=== PATIENT | male | born 1950 | race Two or more races ===

== ENCOUNTER 2020-09-05 14:00 | Inpatient (IN) | payer OTHER ==
[~2020-09-05] VITALS: Ht 162.6 cm; Wt 67.5 kg
[2020-09-05] MEDS ORDERED: AZITHROMYCIN 500MG/ 250ML 250 ML IV ONE (14:15)
[2020-09-05] MEDS ORDERED: methylPREDNISolone SOD SUCC 125 MG/2 ML VL IV ONE (14:15)
[2020-09-05 15:38] LABS: Basophils # (auto) 0 10 ^3/uL (0-0.2); Basophils % (auto) 0.1 % (0.0-2.0); Eosinophils # (auto) 0 10 ^3/uL (0-0.8); Eosinophils % (auto) 0.1 % (0.0-7.0); Hematocrit 43.3 % (41.0-53.0); Hemoglobin 14.3 g/dL (13.5-17.5); Lymphocytes # (auto) 0.5 10 ^3/uL (0.4-5.4); Lymphocytes % (auto) 7.3 % (10.0-50.0); Mean Corpuscular Hemoglobin 28.4 pg (28.0-32.0); Mean Corpuscular Hgb Conc. 33.1 g/dL (32.0-36.0); Mean Corpuscular Volume 85.9 fL (80.0-100.0); Monocytes # (auto) 0.7 10 ^3/uL (0-1.3); Monocytes % (auto) 10.4 % (0.0-12.0); Neutrophils # (auto) 5.7 10 ^3/uL (1.6-8.6); Neutrophils % (auto) 82.1 % (37.0-80.0); Nucleated Red Blood Cells % 0.2 %; Platelet Count (auto) 287 10^3/uL (140-450); Red Blood Cells 5.03 10^6/uL (4.5-5.90); Red Cell Distribution Width 13.2 % (11.8-14.3); White Blood Cell 6.9 10^3/uL (4.4-10.8)
[2020-09-05 15:58] LABS: Blood Urea Nitrogen 33 mg/dL (7-18); Calcium 8.3 mg/dL (8.5-10.1); Chloride 103 mmol/L (98-107); Potassium 3.6 mmol/L (3.5-5.1); Sodium 134 mmol/L (136-145)
[2020-09-05 16:08] LABS: Alanine Aminotransferase 36 U/L (16-61); Albumin 2.6 g/dL (3.4-5.0); Alkaline Phosphatase 92 U/L (45-117); Anion Gap 7 (5-15); Aspartate Aminotransferase 66 U/L (15-37); BUN/Creatinine Ratio 31.4; Bilirubin, Total 0.6 mg/dL (0.2-1.0); Carbon Dioxide 24 mmol/L (21-32); GFR African American 90 mL/min; GFR Non-African American 75 mL/min; Glucose 148 mg/dL (74-106); Total Protein 7.7 g/dL (6.4-8.2)
[2020-09-06 00:35] VITALS: BP 131/73
--- NOTE | 2020-09-06 00:35 | NUR ---
MS admit from ER LUISITO PABLO admitted to [facility] after NO SBAR received. Patient oriented to MABEL NERI, RN primary RN, unit, room, bed, and unit policies regarding patient care and visiting hours. Patient weighed by bedscale and encouraged to call if they need something. All questions and concerns addressed, patient verbalized understanding. Call light wihtin reach and bed in low position., Guards at bedside.
[2020-09-06] MEDS: ACCU-CHEK COMFORT CURVE STRIP VI SCH ×2 (05:51→18:01)
[2020-09-06] MEDS: InsuLIN REG 1unit/0.01ml Soln (100units/ml) SC SCH ×2 (05:52→18:02)
[2020-09-06 06:06] VITALS: BP 122/74
--- NOTE | 2020-09-06 07:05 | NUR ---
REPORT GIVEN TO DAYSHIFT RN PATIENT DENIES SOB/DISTRESS OR PAIN
--- NOTE | 2020-09-06 08:00 | NUR ---
ASSESSMENT NOTE PT IS ALERT ORIENTED X4, RESTING IN BED COMFORTABLY, NO DISTRESS NOTED, OXYGEN 2 L NC, ABLE TO SELF REPOSITION AND VERBALIS HIS DEMANDS, PAIN 0/10 AT THIS TIME, A METAL HAND CUFF NOTED AT LEFT WRIEST AND BOTH FEET, GUARDS AT BED SIDE AT ALL TIMES, USE URINAL NEEDED, CALL LIGHT WITHIN REACH
[2020-09-06] MEDS: cefTRIAXone 1GM/50ML D5W 50 ML IV SCH (09:49)
[2020-09-06] MEDS: ZINC SULFATE 220mg CAP or TAB PO SCH (09:49)
[2020-09-06] MEDS: ASCORBIC ACID 500 MG TAB PO SCH (09:49)
[2020-09-06] MEDS: methylPREDNISolone SOD SUCC 125 MG/2 ML VL IV SCH (09:49)
[2020-09-06] MEDS: CHOLECALCIFEROL (VITD3) 2,000 UNIT CAP PO SCH (09:50)
[2020-09-06] MEDS: AZITHROMYCIN 250 MG TAB PO SCH (09:50)
--- NOTE | 2020-09-06 14:26 | NUR ---
Nutrition Consult/Assessment Notes please see attached link for complete assessment [employer] needs BW 68 [id number] kcals (23-25 kcal/kgBW), Est Protein needs: 68-74 gms/day (1.0-1.1 gm/kgBW). Will continue to monitor and reassess prn. Addendum: 09/06/20 at [address] Amended: Links added.
--- NOTE | 2020-09-06 18:00 | NUR ---
PT CONTINUE STABLE, TOLERATED DIET WELL, NO DISTRESS NOTED, ABLE TO AMBULATE TO BATHROOM NEEDED, GUARDS AT BED SIDE AT ALL TIMES
--- NOTE | 2020-09-06 19:35 | NUR ---
Opening Shift Note Assumed care of patient, awake and alert. No S/S of distress/SOB or pain. Instructed on POC and to call for assist PRN, will continue to monitor for changes Q1hr and PRN.Bed in low position and call light within reach. guards at bedside.
[2020-09-06] MEDS: ATORVASTATIN 20 MG TAB PO SCH (21:39)
[2020-09-06 22:00] VITALS: BP 128/73
[2020-09-07 04:52] VITALS: BP 124/75
[2020-09-07] MEDS: glipiZIDE 5 MG TAB PO SCH (06:20)
[2020-09-07] MEDS: InsuLIN REG 1unit/0.01ml Soln (100units/ml) SC SCH ×2 (06:23→18:49)
[2020-09-07] MEDS: ACCU-CHEK COMFORT CURVE STRIP VI SCH ×2 (06:23→18:49)
--- NOTE | 2020-09-07 07:05 | NUR ---
Report given to dayshift rn patient denies sob distress or pain.
--- NOTE | 2020-09-07 07:30 | NUR ---
Opening Shift Note Assumed care of patient, awake and alert. No signs of distress or pain noted. Patient on 2 L Nasal Cannula. Respirations even and unlabored. Instructed patient on the use of the call light PRN. Call light within reach. Safety measures in place including bed locked and in lowest position, and two side rails up. Will continue to monitor for any changes.
[2020-09-07] MEDS ORDERED: metFORMIN HYDROCHLORIDE 500 MG TAB PO SCH (08:00)
[2020-09-07 09:00] VITALS: BP 136/80
[2020-09-07] MEDS: ASCORBIC ACID 500 MG TAB PO SCH (11:21)
[2020-09-07] MEDS: ZINC SULFATE 220mg CAP or TAB PO SCH (11:21)
[2020-09-07] MEDS: methylPREDNISolone SOD SUCC 125 MG/2 ML VL IV SCH (11:21)
[2020-09-07] MEDS: LISINOPRIL 10 MG TAB PO SCH (11:21)
[2020-09-07] MEDS: ASPirin 81 mg TAB PO SCH (11:22)
[2020-09-07] MEDS: ENOXAPARIN SOD 40 MG/0.4 ML SYRINGE SC SCH (11:27)
[2020-09-07] MEDS: AZITHROMYCIN 250 MG TAB PO SCH (11:27)
[2020-09-07] MEDS: cefTRIAXone 1GM/50ML D5W 50 ML IV SCH (11:28)
--- NOTE | 2020-09-07 12:05 | NUR ---
Dr. Duong at bedside Dr. Duong at bedside. Spoke to patients and updated patient on plan of care.
[2020-09-07 12:49] VITALS: BP 143/76
[2020-09-07] MEDS ORDERED: REMDESIVIR PER PHARMACY 0 ML IV SCH ×2 (14:15→14:30)
[2020-09-07] MEDS: CHOLECALCIFEROL (VITD3) 2,000 UNIT CAP PO SCH (14:21)
[2020-09-07] MEDS ORDERED: REMDESIVIR 200 MG in NS 210ml LOADING DOSE ADULT IV ONE (15:00)
--- NOTE | 2020-09-07 15:43 | NUR ---
DR. TREJO AT BEDSIDE.
[2020-09-07] MEDS: metFORMIN HYDROCHLORIDE 850 MG TAB PO SCH ×2 (16:02→22:09)
[2020-09-07 16:38] VITALS: BP 126/70
--- NOTE | 2020-09-07 17:17 | NUR ---
REMDESIVIR Medication ended. Patient tolerated medication well, will continue to monitor. REMDESIVIR INFUSION VITALS Pre Infusion Vitals: Heart Rate: 87 BP: 126/70 Temperature: 97.9 O2: 96 Respiratory Rate: 20 15 minute vitals: Heart Rate: 93 BP: 131/72 Temperature: 98.0 O2: 95 Respiratory Rate: 22 Post Infusion Vitals: Heart Rate: 97 BP: 131/78 Temperature: 97.9 O2: 96 Respiratory Rate: 20
--- NOTE | 2020-09-07 18:17 | NUR ---
REMDESIVIR 1 hour post remdesivir vitals: Blood Pressure: 129/74 O2: 92 Temperature: 97.9 Heart Rate: 87 Respiratory rate: 20
--- NOTE | 2020-09-07 19:55 | NUR ---
Opening Shift Note Assumed care of patient. Awake, alert and oriented x4. No S/S of distress/SOB or pain. Pt is on 2L NC with even and unlabored respirations. Instructed on POC and to call for assist PRN. Bed locked, in lowest position, call light within reach, side rails up x2. Will continue to monitor for changes Q1hr and PRN.
[2020-09-07 22:00] VITALS: BP 134/74
[2020-09-07] MEDS: ATORVASTATIN 20 MG TAB PO SCH (22:09)
[2020-09-08 05:00] VITALS: BP 128/78
[2020-09-08] MEDS: metFORMIN HYDROCHLORIDE 850 MG TAB PO SCH ×3 (07:02→17:41)
[2020-09-08] MEDS: InsuLIN REG 1unit/0.01ml Soln (100units/ml) SC SCH ×2 (07:03→17:42)
[2020-09-08] MEDS: ACCU-CHEK COMFORT CURVE STRIP VI SCH ×2 (07:03→17:41)
[2020-09-08] MEDS: glipiZIDE 5 MG TAB PO SCH (07:03)
[2020-09-08 08:00] VITALS: BP 136/80
[2020-09-08 08:47] VITALS: BP 125/68
[2020-09-08 09:29] LABS: Albumin 2.4 g/dL (3.4-5.0); Calcium 8.5 mg/dL (8.5-10.1); Potassium 3.8 mmol/L (3.5-5.1)
[2020-09-08 09:32] LABS: BUN/Creatinine Ratio 35.5; Bilirubin, Total 0.5 mg/dL (0.2-1.0); Total Protein 7.2 g/dL (6.4-8.2)
[2020-09-08] MEDS: DexAMETHasone SOD PHOS 10MG/1ML VIAL INJ IV SCH (09:42)
[2020-09-08] MEDS: ASPirin 81 mg TAB PO SCH (09:43)
[2020-09-08] MEDS: ZINC SULFATE 220mg CAP or TAB PO SCH (09:43)
[2020-09-08] MEDS: ASCORBIC ACID 500 MG TAB PO SCH (09:43)
[2020-09-08] MEDS: CHOLECALCIFEROL (VITD3) 2,000 UNIT CAP PO SCH (09:43)
[2020-09-08] MEDS: cefTRIAXone 1GM/50ML D5W 50 ML IV SCH (09:43)
[2020-09-08] MEDS: LISINOPRIL 10 MG TAB PO SCH (09:44)
[2020-09-08] MEDS: ENOXAPARIN SOD 40 MG/0.4 ML SYRINGE SC SCH (09:44)
[2020-09-08] MEDS: AZITHROMYCIN 250 MG TAB PO SCH (09:44)
--- NOTE | 2020-09-08 12:00 | NUR ---
DR OLIVA IS HERE, FOLLOWING UP ON PT
[2020-09-08 12:42] VITALS: BP 125/71
[2020-09-08] MEDS: REMDESIVIR 100 MG in SODIUM CHL 0.9% 250 ML IV SCH (15:33)
--- NOTE | 2020-09-08 15:33 | NUR ---
REMEDISIVIR IV INITIATED PRE SET OF VS TAKEN, CONTINUE MONITORING
--- NOTE | 2020-09-08 16:33 | NUR ---
PT TOLERATED REMEDISIVIR WELL, NO DISTRESS NOTED, CONTINUE MONITORING
[2020-09-08 17:08] VITALS: BP 128/76
--- NOTE | 2020-09-08 18:48 | NUR ---
PT CONTINUE STABLE, CONTINUE MONITORING
[2020-09-08 22:15] VITALS: BP 125/72
[2020-09-08] MEDS: ATORVASTATIN 20 MG TAB PO SCH (22:26)
[2020-09-09] VITALS (7 sets, daily range): BP systolic 118–125; BP diastolic 68–72
[2020-09-09] MEDS: glipiZIDE 5 MG TAB PO SCH (06:39)
[2020-09-09] MEDS: ACCU-CHEK COMFORT CURVE STRIP VI SCH ×2 (06:40→16:52)
[2020-09-09] MEDS: InsuLIN REG 1unit/0.01ml Soln (100units/ml) SC SCH ×2 (06:40→16:59)
[2020-09-09] MEDS: metFORMIN HYDROCHLORIDE 850 MG TAB PO SCH ×3 (08:08→17:45)
[2020-09-09] MEDS: cefTRIAXone 1GM/50ML D5W 50 ML IV SCH (10:09)
[2020-09-09] MEDS: DexAMETHasone SOD PHOS 10MG/1ML VIAL INJ IV SCH (10:09)
[2020-09-09] MEDS: ZINC SULFATE 220mg CAP or TAB PO SCH (10:09)
[2020-09-09] MEDS: ASPirin 81 mg TAB PO SCH (10:09)
[2020-09-09] MEDS: AZITHROMYCIN 250 MG TAB PO SCH (10:10)
[2020-09-09] MEDS: ASCORBIC ACID 500 MG TAB PO SCH (10:10)
[2020-09-09] MEDS: CHOLECALCIFEROL (VITD3) 2,000 UNIT CAP PO SCH (10:10)
--- NOTE | 2020-09-09 10:16 | NUR ---
Nutrition Followup Note Wt 69.6kg Pt is covid positive in covid isolation. Pt with no new distress per Rn note. Pt appetite is good aeb pt with 100% po intake of all meals per RN note of CCHO 60g diet Est [employer] needs BW 68 [id number] kcals (23-25 kcal/kgBW), Est Protein needs: 68-74 gms/day (1.0-1.1 gm/kgBW). Will continue to monitor and reassess prn. Labs: BUN 33H, GLUC 206H, Alb 2.4L BM: Pt with no BM noted per Rn note Skin: BS 20 low risk, full details in care nurse rn note . PES Altered nutrition related lab values r.t current chronic medical conidtion aeb elev BUN mod hypoalb hyperglycemia Comments 1) consider CCHO 60 gm as pt with hx of DM 2) refer to CDE on DC 3) continue current plan of care Expected Outcomes/Goals: pt will have improved labs F/u mod 3-5 days
[2020-09-09] MEDS: ENOXAPARIN SOD 40 MG/0.4 ML SYRINGE SC SCH (11:03)
[2020-09-09] MEDS: LISINOPRIL 10 MG TAB PO SCH (11:03)
[2020-09-09 13:07] LABS: Potassium 3.8 mmol/L (3.5-5.1)
[2020-09-09 13:20] LABS: Albumin 2.3 g/dL (3.4-5.0); BUN/Creatinine Ratio 31.9; Bilirubin, Total 0.4 mg/dL (0.2-1.0); Calcium 8.2 mg/dL (8.5-10.1); Total Protein 6.4 g/dL (6.4-8.2)
[2020-09-09] MEDS: REMDESIVIR 100 MG in SODIUM CHL 0.9% 250 ML IV SCH (15:25)
--- NOTE | 2020-09-09 15:25 | NUR ---
REMEDISIVIR IV INITIATED PRE SET OF VS TAKEN, CONTINUE MONITORING
--- NOTE | 2020-09-09 16:25 | NUR ---
PT TOLERATED REMEDISIVIR WELL, NO DISTRESS NOTED, CONTINUE MONITORING
--- NOTE | 2020-09-09 18:50 | NUR ---
PT CONTINUE STABLE, CONTINUE MONITORING
[2020-09-09] MEDS: ATORVASTATIN 20 MG TAB PO SCH (21:35)
[2020-09-10] VITALS (8 sets, daily range): BP systolic 115–137; BP diastolic 67–84
[2020-09-10] MEDS: InsuLIN REG 1unit/0.01ml Soln (100units/ml) SC SCH ×2 (06:41→17:23)
[2020-09-10] MEDS: glipiZIDE 5 MG TAB PO SCH (06:42)
[2020-09-10] MEDS: ACCU-CHEK COMFORT CURVE STRIP VI SCH ×2 (06:43→17:15)
[2020-09-10 07:36] LABS: Potassium 4.1 mmol/L (3.5-5.1)
[2020-09-10 07:42] LABS: Albumin 2.5 g/dL (3.4-5.0); BUN/Creatinine Ratio 35.1; Calcium 8.2 mg/dL (8.5-10.1)
[2020-09-10 07:45] LABS: Bilirubin, Total 0.6 mg/dL (0.2-1.0); Total Protein 6.6 g/dL (6.4-8.2)
--- NOTE | 2020-09-10 08:00 | NUR ---
ASSESSMENT NOTE PT IS ALERT ORIENTED X4, RESTING IN BED COMFORTABLY, NO DISTRESS NOTED, OXYGEN 2 L NC, SAT AT 94 %, ABLE TO SELF REPOSITION AND VERBALIS HIS DEMANDS, PAIN 0/10 AT THIS TIME, A METAL HAND CUFF NOTED AT LEFT WRIEST AND BOTH FEET, GUARDS AT BED SIDE AT ALL TIMES, USE URINAL NEEDED, CALL LIGHT WITHIN REACH
[2020-09-10] MEDS: metFORMIN HYDROCHLORIDE 850 MG TAB PO SCH ×3 (08:36→17:59)
--- NOTE | 2020-09-10 09:30 | NUR ---
DR TREJO IS HERE FOLLOWING UP ON PT, ADVICE TO TAKE OFF THE OXYGEN AND REASSESS
[2020-09-10] MEDS: ASPirin 81 mg TAB PO SCH (10:14)
[2020-09-10] MEDS: DexAMETHasone SOD PHOS 10MG/1ML VIAL INJ IV SCH (10:14)
[2020-09-10] MEDS: cefTRIAXone 1GM/50ML D5W 50 ML IV SCH (10:14)
[2020-09-10] MEDS: CHOLECALCIFEROL (VITD3) 2,000 UNIT CAP PO SCH (10:15)
[2020-09-10] MEDS: ASCORBIC ACID 500 MG TAB PO SCH (10:15)
[2020-09-10] MEDS: ZINC SULFATE 220mg CAP or TAB PO SCH (10:15)
[2020-09-10] MEDS: LISINOPRIL 10 MG TAB PO SCH (10:16)
[2020-09-10] MEDS: AZITHROMYCIN 250 MG TAB PO SCH (10:16)
[2020-09-10] MEDS: ENOXAPARIN SOD 40 MG/0.4 ML SYRINGE SC SCH (10:16)
--- NOTE | 2020-09-10 11:30 | NUR ---
ROOM AIR SATURATION ON RESTING 93 % PT AMBULATING IN THE HALLWAYS, 100 FEET AND BACK TO BED, PT SAT AT 89-90, OCCASIONAL NON PRODUCTIVE COUGH NOTED, OXYGEN 2 L NC APPLIED
[2020-09-10] MEDS: REMDESIVIR 100 MG in SODIUM CHL 0.9% 250 ML IV SCH (15:49)
--- NOTE | 2020-09-10 15:49 | NUR ---
REMEDISIVIR IV INITIATED PRE SET OF VS TAKEN, CONTINUE MONITORING
--- NOTE | 2020-09-10 16:49 | NUR ---
PT TOLERATED REMEDISIVIR WELL, NO DISTRESS NOTED, CONTINUE MONITORING
--- NOTE | 2020-09-10 18:25 | NUR ---
PT CONTINUE STABLE, CONTINUE MONITORING
--- NOTE | 2020-09-10 19:30 | NUR ---
OPENING SHIFT NOTE Assumed care of patient who is A&O x4. Currently on 2L NC with no s/s of distress. Reports productive cough with white thick secretions and pleuritic pain upon deep inspiration. PIV in right hand is intact and patent. Flushed with 10ml NS. Patient is ambulatory without the use of assistive devices at baseline. POC discussed and patient verbalized understanding. Patient is an [employer] inmate and is restrained too bed at left wrist and bilateral ankles. Two correctional officers present at bedside for safety. Bed is in low locked position with side rails up x2. Call light is within reach and patient encouraged to call for assistance when needed. Will continue to monitor for changes PRN.
[2020-09-10] MEDS: ATORVASTATIN 20 MG TAB PO SCH (21:44)
--- NOTE | 2020-09-10 23:00 | NUR ---
IS Patient educated on IS. Return demonstration with marker at 700 x3. Patient coughing after deep inspiration. Encouraged to continue with 10 cycles per hour while awake. Patient verbalizes understanding.
--- NOTE | 2020-09-10 23:30 | NUR ---
350ml Clear yellow urine emptied from urinal.
[2020-09-11 05:53] VITALS: BP 124/75
[2020-09-11] MEDS: ACCU-CHEK COMFORT CURVE STRIP VI SCH ×2 (06:27→17:26)
[2020-09-11] MEDS: InsuLIN REG 1unit/0.01ml Soln (100units/ml) SC SCH ×2 (06:27→18:02)
[2020-09-11] MEDS: glipiZIDE 5 MG TAB PO SCH (06:28)
[2020-09-11 07:18] LABS: Albumin 2.5 g/dL (3.4-5.0); BUN/Creatinine Ratio 25.7; Bilirubin, Total 0.6 mg/dL (0.2-1.0); Calcium 8.5 mg/dL (8.5-10.1); Total Protein 6.6 g/dL (6.4-8.2)
[2020-09-11 08:00] VITALS: BP_SYST 128; BP_SYST 129; BP_DIAS 67; BP_DIAS 71
--- NOTE | 2020-09-11 08:00 | NUR ---
ASSESSMENT NOTE PT IS ALERT ORIENTED X4, RESTING IN BED COMFORTABLY, NO DISTRESS NOTED, OXYGEN 2 L NC, SAT AT 94 %, ABLE TO SELF REPOSITION AND VERBALIS HIS DEMANDS, GENERALIS WEAKNESS NOTED, PAIN 0/10 AT THIS TIME, A METAL HAND CUFF NOTED AT LEFT WRIEST AND BOTH FEET, GUARDS AT BED SIDE AT ALL TIMES, USE URINAL NEEDED, CALL LIGHT WITHIN REACH
--- NOTE | 2020-09-11 10:00 | NUR ---
INCENTIVE SPIROMETER EDUCATED PT HOW TO USE INCENTIVE SPIROMETER EVERY HOUR TOLERATED, , EXPLAIN WHY, VERBALIS UNDERSTANDING.
[2020-09-11] MEDS: ASPirin 81 mg TAB PO SCH (10:07)
[2020-09-11] MEDS: metFORMIN HYDROCHLORIDE 850 MG TAB PO SCH ×3 (10:07→18:01)
[2020-09-11] MEDS: cefTRIAXone 1GM/50ML D5W 50 ML IV SCH (10:07)
[2020-09-11] MEDS: DexAMETHasone SOD PHOS 10MG/1ML VIAL INJ IV SCH (10:07)
[2020-09-11] MEDS: ZINC SULFATE 220mg CAP or TAB PO SCH (10:08)
[2020-09-11] MEDS: ASCORBIC ACID 500 MG TAB PO SCH (10:08)
[2020-09-11] MEDS: LISINOPRIL 10 MG TAB PO SCH (10:08)
[2020-09-11] MEDS: CHOLECALCIFEROL (VITD3) 2,000 UNIT CAP PO SCH (10:08)
[2020-09-11] MEDS: ENOXAPARIN SOD 40 MG/0.4 ML SYRINGE SC SCH (10:09)
[2020-09-11] MEDS: AZITHROMYCIN 250 MG TAB PO SCH (10:09)
--- NOTE | 2020-09-11 12:00 | NUR ---
DR TREJO IS HERE FOLLOWING UP ON PT, MADE AWARE OF PATIENT'S SATURATION DURING AMBULATION AND ON RESTING
--- NOTE | 2020-09-11 12:00 | NUR ---
PT ON ROOM AIR SAT AT 94 % ON RESTING, CONTINUE MONITORING
[2020-09-11 13:00] VITALS: BP 128/75
[2020-09-11] MEDS: REMDESIVIR 100 MG in SODIUM CHL 0.9% 250 ML IV SCH (16:18)
--- NOTE | 2020-09-11 16:18 | NUR ---
REMEDISIVIR IV INTIMATED PRE SET OF VS TAKEN, CONTINUE MONITORING
[2020-09-11 17:00] VITALS: BP_SYST 121; BP_SYST 143; BP_DIAS 59; BP_DIAS 94
--- NOTE | 2020-09-11 17:18 | NUR ---
PT TOLERATED REMEDISIVIR WELL, NO DISTRESS NOTED, CONTINUE MONITORING
--- NOTE | 2020-09-11 18:44 | NUR ---
PT CONTINUE STABLE, CONTINUE MONITORING
[2020-09-11 22:00] VITALS: BP 144/75
[2020-09-11] MEDS: ATORVASTATIN 20 MG TAB PO SCH (22:01)
[2020-09-12] MEDS: glipiZIDE 5 MG TAB PO SCH (06:39)
[2020-09-12] MEDS: InsuLIN REG 1unit/0.01ml Soln (100units/ml) SC SCH ×2 (06:40→18:24)
[2020-09-12] MEDS: ACCU-CHEK COMFORT CURVE STRIP VI SCH ×2 (07:00→18:21)
[2020-09-12 08:00] VITALS: BP 127/74
--- NOTE | 2020-09-12 08:05 | NUR ---
Opening Shift Note Assumed care of patient, awake and alert. No S/S of distress/SOB or pain. Patient is on 2L NC. Instructed on POC and to call for assist PRN, will continue to monitor for changes Q1hr and PRN. Bed is locked and in lowest position. Call light within reach.
[2020-09-12] MEDS: metFORMIN HYDROCHLORIDE 850 MG TAB PO SCH ×3 (08:38→18:21)
[2020-09-12] MEDS: ENOXAPARIN SOD 40 MG/0.4 ML SYRINGE SC SCH (10:00)
[2020-09-12] MEDS: cefTRIAXone 1GM/50ML D5W 50 ML IV SCH (10:11)
[2020-09-12] MEDS: ASPirin 81 mg TAB PO SCH (10:11)
[2020-09-12] MEDS: ZINC SULFATE 220mg CAP or TAB PO SCH (10:12)
[2020-09-12] MEDS: CHOLECALCIFEROL (VITD3) 2,000 UNIT CAP PO SCH (10:12)
[2020-09-12] MEDS: ASCORBIC ACID 500 MG TAB PO SCH (10:12)
[2020-09-12] MEDS: LISINOPRIL 10 MG TAB PO SCH (10:13)
[2020-09-12] MEDS: AZITHROMYCIN 250 MG TAB PO SCH (10:13)
--- NOTE | 2020-09-12 10:30 | NUR ---
IV REMOVAL AND IV INSERTION IV insertion IV access obtained, via clean sterile technique by inserting [20] gauge catheter at [RIGHT FOREARM ] after [2] attempt(s). IV secured properly. No trauma to site. Patient tolerated well. IV removal IV DC'd on right hand with clean sterile technique, catheter fully intact. Pressure dressing applied to site. Patient tolerated well.
--- NOTE | 2020-09-12 12:18 | NUR ---
Nutrition Followup Note Wt 68.5kg Pt is covid positive in covid isolation. Pt continues to have no new distress or SOB per RN note. Pt continues to have a good appetite aeb pt with 75-100% of all meals per RN note of CCHO 60g diet Est Energy needs BW 68 [id number] kcals (23-25 kcal/kgBW), Est Protein needs: 68-74 gms/day (1.0-1.1 gm/kgBW). Will continue to monitor and reassess prn. Labs: BUN 26H, GLUC 147H, Alb 2.5L BM: Pt with 1 BM 09/11 per Rn note Skin: BS 19 low risk, full details in care transitions manager note . PES Altered nutrition related lab values r.t current chronic medical conidtion aeb elev BUN mod hypoalb hyperglycemia Comments 1) refer to CDE on DC 2) continue current plan of care Expected Outcomes/Goals: pt will have improved labs F/u mod 3-5 days
[2020-09-12] MEDS: DexAMETHasone SOD PHOS 10MG/1ML VIAL INJ IV SCH (13:07)
[2020-09-12] MEDS: ATORVASTATIN 20 MG TAB PO SCH (21:50)
[2020-09-13] MEDS: glipiZIDE 5 MG TAB PO SCH (06:52)
[2020-09-13] MEDS: ACCU-CHEK COMFORT CURVE STRIP VI SCH ×2 (06:52→18:33)
[2020-09-13] MEDS: InsuLIN REG 1unit/0.01ml Soln (100units/ml) SC SCH ×2 (06:52→18:34)
[2020-09-13] MEDS: ASCORBIC ACID 500 MG TAB PO SCH (08:31)
[2020-09-13] MEDS: ENOXAPARIN SOD 40 MG/0.4 ML SYRINGE SC SCH (08:32)
[2020-09-13] MEDS: DexAMETHasone SOD PHOS 10MG/1ML VIAL INJ IV SCH (08:32)
[2020-09-13] MEDS: metFORMIN HYDROCHLORIDE 850 MG TAB PO SCH ×3 (08:32→18:32)
[2020-09-13] MEDS: cefTRIAXone 1GM/50ML D5W 50 ML IV SCH (08:32)
[2020-09-13] MEDS: ASPirin 81 mg TAB PO SCH (08:32)
[2020-09-13] MEDS: AZITHROMYCIN 250 MG TAB PO SCH (08:32)
[2020-09-13] MEDS: ZINC SULFATE 220mg CAP or TAB PO SCH (08:33)
[2020-09-13] MEDS: CHOLECALCIFEROL (VITD3) 2,000 UNIT CAP PO SCH (08:33)
[2020-09-13] MEDS: LISINOPRIL 10 MG TAB PO SCH (08:33)
[2020-09-13 09:00] VITALS: BP 132/94
--- NOTE | 2020-09-13 12:54 | NUR ---
CARE ENDORSED TO JONELLE ASTORGA
[2020-09-13 13:00] VITALS: BP 126/70
[2020-09-13 16:00] VITALS: BP 123/62
[2020-09-13] MEDS: ATORVASTATIN 20 MG TAB PO SCH (21:52)
[2020-09-14] VITALS: BP 125/73
[2020-09-14] MEDS: glipiZIDE 5 MG TAB PO SCH (06:40)
[2020-09-14] MEDS: InsuLIN REG 1unit/0.01ml Soln (100units/ml) SC SCH ×2 (06:40→18:34)
[2020-09-14] MEDS: ACCU-CHEK COMFORT CURVE STRIP VI SCH ×2 (06:41→18:30)
--- NOTE | 2020-09-14 07:24 | NUR ---
Opening Shift Note Assumed care of patient, awake and alert. No S/S of distress/SOB or pain. Patient is on 1L NC. Instructed on POC and to call for assist PRN, will continue to monitor for changes Q1hr and PRN. Bed is locked and in lowest position. Call light within reach.
[2020-09-14 08:00] VITALS: BP 130/71
[2020-09-14] MEDS: LISINOPRIL 10 MG TAB PO SCH (09:01)
[2020-09-14] MEDS: ZINC SULFATE 220mg CAP or TAB PO SCH (09:01)
[2020-09-14] MEDS: metFORMIN HYDROCHLORIDE 850 MG TAB PO SCH ×3 (09:01→18:30)
[2020-09-14] MEDS: ASCORBIC ACID 500 MG TAB PO SCH (09:01)
[2020-09-14] MEDS: AZITHROMYCIN 250 MG TAB PO SCH (09:01)
[2020-09-14] MEDS: cefTRIAXone 1GM/50ML D5W 50 ML IV SCH (09:02)
[2020-09-14] MEDS: DexAMETHasone SOD PHOS 4 MG/1ML SDV INJ IV SCH (09:02)
[2020-09-14] MEDS: ENOXAPARIN SOD 40 MG/0.4 ML SYRINGE SC SCH (09:02)
[2020-09-14] MEDS: ASPirin 81 mg TAB PO SCH (09:02)
[2020-09-14] MEDS: CHOLECALCIFEROL (VITD3) 2,000 UNIT CAP PO SCH (09:03)
[2020-09-14 16:00] VITALS: BP 121/69
[2020-09-14 20:00] VITALS: BP 135/69
[2020-09-14 22:00] VITALS: BP 130/71
[2020-09-14] MEDS: ATORVASTATIN 20 MG TAB PO SCH (22:37)
[2020-09-15] MEDS: InsuLIN REG 1unit/0.01ml Soln (100units/ml) SC SCH ×2 (05:35→18:30)
[2020-09-15] MEDS: ACCU-CHEK COMFORT CURVE STRIP VI SCH ×2 (05:57→18:17)
[2020-09-15] MEDS: glipiZIDE 5 MG TAB PO SCH (06:13)
[2020-09-15 08:00] VITALS: BP 115/69
[2020-09-15] MEDS: metFORMIN HYDROCHLORIDE 850 MG TAB PO SCH ×3 (08:38→18:17)
[2020-09-15] MEDS: cefTRIAXone 1GM/50ML D5W 50 ML IV SCH (10:52)
[2020-09-15] MEDS: DexAMETHasone SOD PHOS 4 MG/1ML SDV INJ IV SCH (10:52)
[2020-09-15] MEDS: ZINC SULFATE 220mg CAP or TAB PO SCH (10:52)
[2020-09-15] MEDS: ASPirin 81 mg TAB PO SCH (10:52)
[2020-09-15] MEDS: CHOLECALCIFEROL (VITD3) 2,000 UNIT CAP PO SCH (10:53)
[2020-09-15] MEDS: ASCORBIC ACID 500 MG TAB PO SCH (10:53)
[2020-09-15] MEDS: AZITHROMYCIN 250 MG TAB PO SCH (10:54)
[2020-09-15] MEDS: ENOXAPARIN SOD 40 MG/0.4 ML SYRINGE SC SCH (10:54)
[2020-09-15] MEDS: LISINOPRIL 10 MG TAB PO SCH (10:54)
[2020-09-15 16:00] VITALS: BP 132/66
--- NOTE | 2020-09-15 19:00 | NUR ---
Opening Shift Note Assumed care of patient, awake and alert. No S/S of distress/SOB or pain. Instructed on POC and to call for assist PRN, will continue to monitor for changes Q1hr and PRN.
[2020-09-15] MEDS: ATORVASTATIN 20 MG TAB PO SCH (21:24)
[2020-09-15 22:00] VITALS: BP 122/73
[2020-09-16] MEDS: ACCU-CHEK COMFORT CURVE STRIP VI SCH ×2 (06:34→18:00)
[2020-09-16] MEDS: InsuLIN REG 1unit/0.01ml Soln (100units/ml) SC SCH ×2 (06:34→18:00)
[2020-09-16] MEDS: glipiZIDE 5 MG TAB PO SCH (06:35)
[2020-09-16 08:00] VITALS: BP 137/82
[2020-09-16] MEDS: metFORMIN HYDROCHLORIDE 850 MG TAB PO SCH ×3 (08:31→18:00)
[2020-09-16] MEDS: DexAMETHasone SOD PHOS 4 MG/1ML SDV INJ IV SCH (10:23)
[2020-09-16] MEDS: cefTRIAXone 1GM/50ML D5W 50 ML IV SCH (10:23)
[2020-09-16] MEDS: ASCORBIC ACID 500 MG TAB PO SCH (10:24)
[2020-09-16] MEDS: CHOLECALCIFEROL (VITD3) 2,000 UNIT CAP PO SCH (10:24)
[2020-09-16] MEDS: ZINC SULFATE 220mg CAP or TAB PO SCH (10:24)
[2020-09-16] MEDS: ASPirin 81 mg TAB PO SCH (10:24)
[2020-09-16] MEDS: LISINOPRIL 10 MG TAB PO SCH (10:26)
[2020-09-16] MEDS: ENOXAPARIN SOD 40 MG/0.4 ML SYRINGE SC SCH (10:26)
[2020-09-16] MEDS: AZITHROMYCIN 250 MG TAB PO SCH (10:26)
[2020-09-16 12:18] VITALS: BP 137/82
[2020-09-16 16:15] VITALS: BP 119/70
--- NOTE | 2020-09-16 18:20 | NUR ---
Discharge instructions given as ordered. Encourage to follow up with PMD as instructed. All questions and concerns addressed. Patient verbalized understanding. Medication reconciliation form completed and copy given to patient.IV removed with catheter intact, pressure dressing applied. Patient walked with guard to vehicle with all personal belongings, accompanied by guard . No distress noted at time of departure.
== END 2020-09-16 18:20 | DRG 177 ==
LOC: EDBD 14:00 → EEVIPCON 14:00 → ER 14:00 → OVERFLOW 20:55 → TELE-WESTW 23:52 → WEST WING 09-06 00:14
PROVIDERS: ADMIT Internal Medicine; ATTEND Internal Medicine
PROC: XW033E5 Introduction of Remdesivir Anti-infective into Peripheral Vein, Percutaneous Approach, New Technology Group 5 (ICD-10-PCS; principal; 2020-09-07)
DX: U07.1 COVID-19 (principal); J12.89 Other viral pneumonia; J96.01 Acute respiratory failure with hypoxia; J98.11 Atelectasis; I10 Essential (primary) hypertension; E11.9 Type 2 diabetes mellitus without complications; E78.5 Hyperlipidemia, unspecified; E78.00 Pure hypercholesterolemia, unspecified; F17.200 Nicotine dependence, unspecified, uncomplicated; F12.90 Cannabis use, unspecified, uncomplicated; I25.10 Atherosclerotic heart disease of native coronary artery without angina pectoris; Z96.641 Presence of right artificial hip joint; Z83.3 Family history of diabetes mellitus; Z80.8 Family history of malignant neoplasm of other organs or systems; Z79.899 Other long term (current) drug therapy
CPT/HCPCS: 36415; 71045; 80053; 82728; 82962; 83605; 84484; 85025; 85379; 86141; 87040; 87426; 93005; 96365; 96367; 96375; A4565; G0378; J0696; J1100; J1815